=== PATIENT | male | born 1950 | race African-American/Black ===

== ENCOUNTER 2017-06-24 03:53 | Emergency (ER) | payer MEDICAID ==
[~2017-06-24] VITALS: Ht 193 cm; Wt 104.5 kg
[2017-06-24] MEDS ORDERED: ATOR40TA71 PO (04:11)
[2017-06-24] MEDS ORDERED: LISI-618 PO (04:11)
[2017-06-24] MEDS ORDERED: ASPI81TA33 PO (04:11)
[2017-06-24] MEDS ORDERED: AMLO5TAB66 PO (04:11)
[2017-06-24 04:25] VITALS: BP 144/92
[2017-06-24 04:46] LABS: BASOPHILS % (AUTO) 0.8 % (0.0-2.0); HEMATOCRIT 43.8 % (41-53); LYMPHOCYTES # (AUTO) 1.3 K/uL (1.0-4.8); LYMPHOCYTES % (AUTO) 34.8 % (22.0-44.0); MEAN CORPUSCULAR HEMOGLOBIN 29.5 pg (26.0-34.0); MEAN CORPUSCULAR HGB CONC 34.2 G/dL (31.0-37.0); MEAN CORPUSCULAR VOLUME 86 fL (80-100); MONOCYTES # (AUTO) 0.3 K/uL (0.1-1.0); MONOCYTES % (AUTO) 6.8 % (2.0-9.0); NEUTROPHILS # (AUTO) 2.2 K/uL (1.8-7.7); NEUTROPHILS % (AUTO) 55.6 % (40.0-70.0); RED BLOOD CELL COUNT(AUTO) 5.08 MIL/uL (4.50-5.90); RED CELL DISTRIBUTION WIDTH 14.8 % (11.5-14.5)
[2017-06-24 04:47] LABS: WHITE BLOOD COUNT (AUTO) 4.5 K/uL (4.5-11.0)
[2017-06-24 04:48] LABS: PROTHROMBIN TIME 10.8 SEC (9.4-11.6)
[2017-06-24 04:49] LABS: APPEARANCE,URINE TURBID (CLEAR); GLUCOSE, URINE (UA) NEGATIVE (NEGATIVE); KETONES,URINE 40 mg/dL (NEGATIVE); LEUKOCYTE ESTERASE ,URINE LARGE (NEGATIVE); OCCULT BLOOD,URINE LARGE (NEGATIVE); PROTEIN,URINE SEE CONFIRM (NEGATIVE)
[2017-06-24 04:49] LABS: ANION GAP 5 mmol/L (8-16); CALCIUM, TOTAL 8.9 mg/dL (8.8-10.5); CARBON DIOXIDE 28 mmol/L (22-29); CHLORIDE 104 mmol/L (98-107); CREATININE 0.97 mg/dL (0.60-1.30); GLOMERULAR FILTR. RATE CALC > 60 mL/min (>60); SODIUM SERUM 137 mmol/L (136-145); UREA NITROGEN, BLOOD 14 mg/dL (7-18)
[2017-06-24 04:54] LABS: ALANINE AMINOTRANSFERASE 30 U/L (12-78); ALBUMIN 3.6 g/dL (3.4-5.0); ASPARTATE AMINOTRANSFERASE 23 U/L (15-37); BILIRUBIN,TOTAL 0.3 mg/dL (0.1-1.0); TOTAL PROTEIN, SERUM 7.2 g/dL (6.4-8.2)
[2017-06-24 05:07] LABS: PLATELET COUNT (AUTO) 72 K/uL (150-450)
[2017-06-24 05:10] LABS: RBC,URINE Full Field /HPF (0-2); SULFOSALICYLIC ACID,URINE 3+ (Negative)
[2017-06-24 05:11] LABS: WBC,URINE 26-50 /HPF (0-5)
== END 2017-06-24 06:11 | disposition home or self-care (01) ==
LOC: EMS 03:54
DX: N39.0 Urinary tract infection, site not specified (principal); E78.00 Pure hypercholesterolemia, unspecified; I10 Essential (primary) hypertension; Z86.73 Personal history of transient ischemic attack (TIA), and cerebral infarction without residual deficits; Z79.82 Long term (current) use of aspirin
CPT/HCPCS: 51702; 87086; 99284